=== PATIENT | male | born 1950 | race Caucasian/White ===

== ENCOUNTER 2024-05-29 06:00 | Day surgery (SDC) | payer MEDICARE, OTHER ==
[~2024-05-29] VITALS: Ht 162.6 cm; Wt 64.6 kg
[~2024-05-29 06:00] MED LIST: LR 1,000 ML IV SCH; Ondansetron 4 MG/2 ML VIAL IV PRN
[2024-05-29 06:42] VITALS: BP 124/69; PULSE 55; TEMP 96.7
[2024-05-29] MEDS ORDERED: OSTEO-BI-FLEX 21 TAB PO (06:46)
[2024-05-29 08:20] VITALS: BP 126/73; PULSE 60; TEMP 97.1
[2024-05-29 08:35] VITALS: BP 133/62; PULSE 56
--- NOTE | 2024-05-29 08:50 | NUR ---
0820 RETURNS TO ROOM 1 PER CART. AWAKE, ALERT. RESP UNLABORED. AMBULATES TO RECLINER WITH STANDBY ASSIST. DENIES NAUSEA OR ABD PAIN. VITAL SIGNS OBTAINED. CALL LIGHT AT SIDE. IN ROOM 0828 DR. PERALES HERE TO VISIT WITH PATIENT 0833 TOLERATES PO WATER AND MUFFIN WITHOUT NAUSEA. DISCHARGE INSTRUCTIONS REVIEWED. PATIENT VERBALIZES UNDERSTANDING. COPY PROVIDD IN DISCHARGE FOLDER 0852 DRESSES SELF
== END 2024-05-29 08:53 | disposition home or self-care (01) ==
LOC: SDCO 06:00
DX: Z12.11 Encounter for screening for malignant neoplasm of colon (principal); K57.30 Diverticulosis of large intestine without perforation or abscess without bleeding; E78.00 Pure hypercholesterolemia, unspecified; M71.331 Other bursal cyst, right wrist; F17.201 Nicotine dependence, unspecified, in remission; Z79.899 Other long term (current) drug therapy; Z86.16 Personal history of COVID-19
CPT/HCPCS: J2704; J7120